=== PATIENT | female | born 1995 | race Caucasian/White ===

== ENCOUNTER → 2018-12-08 | Outpatient (CLI) | payer BC, MEDICAID ==
--- NOTE | 2018-12-08 14:54 | Diagnostic Imaging Report ---
INDICATION: survey. TECHNIQUE: Multiple real-time grayscale images were obtained over the gravid uterus. COMPARISON: None. FINDINGS: There is a single live fetus in variable presentation. heart rate was recorded at 146 beats per minute. Placenta is anterior. Placenta is in a marginal location. Amniotic fluid volume is normal. survey demonstrates cervical length to be 3.6 cm. kidneys, bladder and stomach are unremarkable. There is a four-chamber heart. There is a three-vessel cord with normal insertion. The spine is unremarkable. brain evaluation is somewhat limited due to position. Biometrical measurements are as follows: Biparietal 3.22 cm, age 16 weeks 1 days. Head circumference 12.33 cm, age 16 weeks 2 days. Abdominal circumference 10.19 cm, age 16 weeks 2 days. Femur length 1.98 cm, age 16 weeks 0 days. Sonographic estimate age: 16 weeks 2 days. Sonographic estimated date of delivery: 05/23/2019. Estimated Weight: 144 gm (+/- 21 gm). LMP percentile: 36%. heart rate: 146 beats per minute. number: 1 of 1. IMPRESSION: 1. Single live IUP 16 weeks 2 days gestational age. Estimated date of confinement sonographically is 05/23/2019. 2. Marginal anterior placenta. In addition, brain was limited in evaluation due to position. Followup could be performed. Dictated by: Dictated on workstation # [id number]
== END ==
LOC: RAD 11:59
PROVIDERS: ATTEND Obstetrics & Gynecology
DX: Z36.89 Encounter for other specified antenatal screening (principal); Z3A.16 16 weeks gestation of pregnancy
CPT/HCPCS: 76805

== ENCOUNTER → 2019-01-04 | Outpatient (CLI) | payer BC, MEDICAID ==
--- NOTE | 2019-01-04 14:16 | Diagnostic Imaging Report ---
INDICATION: Followup anatomy survey TECHNIQUE: Multiple real-time grayscale images were obtained over the gravid uterus. COMPARISON: 12/08/2018. FINDINGS: The previous OB ultrasound exam performed on 12/08/2018 note a single live fetus approximately 16 weeks 2 days gestation. There are no abnormalities identified, although the brain was not well visualized. On this exam, the brain was still difficult to image but there is no definite abnormality evident. No other abnormalities noted. The prostate did note that the placenta was anterior marginal. On this exam, there is no evidence for previa. The amniotic fluid volume is within normal limits. The growth appearance is fairly uniform and have progressed as expected since the prior study. The cervix was identified and measures 4.3 cm. Biometrical measurements are as follows: Biparietal cm, age weeks days. Head circumference cm, age weeks days. Abdominal circumference cm, age weeks days. Femur length cm, age weeks days. Sonographic estimate age: weeks days. Sonographic estimated date of delivery: . Estimated Weight: gm (+/- gm). LMP percentile: %. heart rate: beats per minute. number: of . IMPRESSION: 1. There is a single live fetus approximately 20 weeks gestation. EDC remains 05/23/2019. 2. There are no abnormalities identified. 3. The placenta is anterior, but there is no previa. 4. The growth appearance has progressed as expected since the prior study. Dictated by: Dictated on workstation # [id number]
== END ==
LOC: RAD 10:00
PROVIDERS: ATTEND Obstetrics & Gynecology
DX: Z36.89 Encounter for other specified antenatal screening (principal); Z3A.20 20 weeks gestation of pregnancy
CPT/HCPCS: 76805

== ENCOUNTER → 2019-04-15 | Outpatient (CLI) | payer BC, MEDICAID ==
[~2019-04-15] MED LIST: ACHD5005 PO; Benzocaine/Menthol TP; DIBU30OI TOP; DOCU100C37 PO; IBUP-844 PO; PREN-142 PO
--- NOTE | 2019-04-15 15:27 | Diagnostic Imaging Report ---
INDICATION: Anatomy scan. TECHNIQUE: Multiple real-time grayscale images were obtained over the gravid uterus. COMPARISON: 01/04/2019. FINDINGS: There is a single live fetus in a cephalic presentation. heart rate was recorded 130 bpm. Placenta is anterior. Amniotic fluid index is 20.7 cm. kidneys, bladder and stomach are unremarkable. There is a four-chamber heart. brain anatomy is limited due to advanced age and position. Biometrical measurements are as follows: Biparietal 8.39 cm, age 33 weeks 6 days. Head circumference 31.09 cm, age 34 weeks 6 days. Abdominal circumference 30.27 cm, age 34 weeks 2 days. Femur length 6.63 cm, age 34 weeks 1 days. Sonographic estimate age: 34 weeks 2 days. Sonographic estimated date of delivery: 05/25/2019. Estimated Weight: 2376 gm (+/- 347 gm). LMP percentile: 38%. heart rate: 130 beats per minute. number: 1 of 1. IMPRESSION: Single live IUP 34 weeks gestational age demonstrating normal interval growth when compared with prior exam. No complicating features are seen. Dictated by: Dictated on workstation # [id number]
== END ==
LOC: RAD 13:49
PROVIDERS: ATTEND Obstetrics & Gynecology
DX: Z34.93 Encounter for supervision of normal pregnancy, unspecified, third trimester (principal); Z3A.34 34 weeks gestation of pregnancy
CPT/HCPCS: 76816

== ENCOUNTER 2019-05-25 02:33 | Inpatient (IN) | payer BC, MEDICAID ==
[~2019-05-25] VITALS: Ht 167.7 cm; Wt 69.1 kg
[2019-05-25] VITALS (36 sets, daily range): BP systolic 101–140; BP diastolic 55–80
[2019-05-25] MEDS ORDERED: PREN-142 PO (02:47)
[2019-05-25] MEDS ORDERED: D5 LR IV SOLUTION 1,000 ML IV ONE (02:58)
[2019-05-25] MEDS: D5 LR IV SOLUTION 1,000 ML IV SCH ×2 (03:27→09:29)
[2019-05-25 03:30] LABS: BASOPHILS % (AUTO) 0 % (0-10); EOSINOPHILS % (AUTO) 0 % (0-10); HEMATOCRIT 37 % (35-52); HEMOGLOBIN 12.3 G/DL (11.5-16.0); LYMPHOCYTES # (AUTO) 1.9 X 10^3 (1.0-4.0); LYMPHOCYTES % (AUTO) 15 % (12-44); MEAN CORPUSCULAR HEMOGLOBIN 27 PG (25-34); MEAN CORPUSCULAR HGB CONC 33 G/DL (32-36); MEAN CORPUSCULAR VOLUME 81 FL (80-99); MONOCYTES # (AUTO) 0.9 X 10^3 (0.0-1.0); MONOCYTES % (AUTO) 7 % (0-12); NEUTROPHILS # (AUTO) 9.9 X 10^3 (1.8-7.8); NEUTROPHILS % (AUTO) 78 % (42-75); PLATELET COUNT 221 10^3/uL (130-400); RED CELL DISTRIBUTION WIDTH 14.9 % (10.0-14.5); WHITE BLOOD COUNT 12.7 10^3/uL (4.3-11.0)
[2019-05-25] MEDS ORDERED: CATHETER FLUSH 10 ML SYR IV SCH ×2 (06:00→14:00)
[2019-05-25] MEDS ORDERED: SUFENTA 0.6MCG/ML BUPIVA 0.125 100 ML ONE (06:23)
[2019-05-25] MEDS ORDERED: BUPIVACAINE 0.25% 30 ML (SENSORCAINE) VIAL ONE (06:52)
[2019-05-25] MEDS ORDERED: fentaNYL INJECTION 100 MCG/2 ML AMP ONE (06:52)
[2019-05-25] MEDS ORDERED: LACTATED RINGERS 1,000 ML IV ONE (07:27)
[2019-05-25] MEDS ORDERED: LACTATED RINGERS 1,000 ML IV SCH (07:40)
[2019-05-25] MEDS ORDERED: diphenhydrAMINE 50 MG/ML INJ (BENADRYL) IV PRN (07:45)
[2019-05-25] MEDS ORDERED: METOCLOPRAMIDE INJ 10 MG/2 ML (REGLAN) IV PRN (07:45)
[2019-05-25] MEDS ORDERED: EPIDURAL (SUFENTA 0.6MCG/ML BUPIVA 0.125%) 100 ML BAG EPI PRN (07:45)
[2019-05-25] MEDS ORDERED: NALOXONE 0.4 MG/ML 1 ML (NARCAN) VIAL IV PRN ×2 (07:45)
[2019-05-25] MEDS ORDERED: ONDANSETRON 4 MG/2 ML (SDV) Z0FRAN IV PRN (07:45)
--- NOTE | 2019-05-25 08:19 | History & Physical-OB ---
OB - Chief Complaint & HPI Date/Time Date of Admission: Date of Admission: May 25, 2019 at 02:54 Date seen by a Provider: May 25, 2019 Time Seen by a Provider: 08:14 Chief Complaint/History OB-Reason for Admission/Chief: Onset of Labor Hx : 1 Hx Para: 0 Expected Date of Delivery: May 24, 2019 Gestational Age in Weeks: 40 Gestational Age in Days: 1 Admission Nurse Assessment Rev: Yes History of Labs O neg Antibody neg RI RPR NR HBsAg NR HIV NR GC neg GBS neg Allergies and Home Medications Allergies Coded Allergies: No Known Drug Allergies (Unverified , 05/25/19) Home Medications Vit No.124/Iron/FA 1 Each Tablet, 1 EACH PO DAILY, (Reported) Patient Home Medication List Home Medication List Reviewed: Yes OB - History Hx of Present Care: Yes Ultrasounds: Normal mid trimester US Obstetrical Complications: None Medical Complications: None Obstetrical History Hx : 1 Hx Para: 0 Patient Past Medical History n/a Social History/Family History Recent Infectious Disease Expo: No Alcohol Use: Denies Use Recreational Drug Use: No 2nd Hand Smoke Exposure: No Immunizations Date of Influenza Vaccine: Mar 30, 2019 OB - Admission Exam Physical Exam Vitals: Vital Signs 05/25/19 05/25/19 07:25 07:30 Temp 36.9 Pulse 103 Resp 18 B/P (MAP) 112/64 (80) Pulse Ox 97 O2 Delivery Room Air HEENT: NCAT Heart: Rhythm Normal Lungs: Clear Abdomen: Gravid Extremities: Normal Reflexes: Normal Cervical Dilatation: 4cm Effacement: 75% Station: -1 Membranes: Intact Heart Rate: 130's Accelerations: Accelerations Present Decelerations: No Decelerations Short Term Variability: Present Senior Living Variability: Average (6-25) Contractions on Admission: < 5 Minutes Apart Intensity: Firm Labs Laboratory Tests Test 05/25/19 03:15 Range/Units White Blood Count 12.7 H 4.3-11.0 10^3/uL Red Blood Count 4.57 4.35-5.85 10^6/uL Hemoglobin 12.3 11.5-16.0 G/DL Hematocrit 37 35-52 % Mean Corpuscular Volume 81 80-99 FL Mean Corpuscular Hemoglobin 27 25-34 PG Mean Corpuscular Hemoglobin Concent 33 32-36 G/DL Red Cell Distribution Width 14.9 H 10.0-14.5 % Platelet Count 221 130-400 10^3/uL Mean Platelet Volume 11.0 H 7.4-10.4 FL Neutrophils (%) (Auto) 78 H 42-75 % Lymphocytes (%) (Auto) 15 12-44 % Monocytes (%) (Auto) 7 0-12 % Eosinophils (%) (Auto) 0 0-10 % Basophils (%) (Auto) 0 0-10 % Neutrophils # (Auto) 9.9 H 1.8-7.8 X 10^3 Lymphocytes # (Auto) 1.9 1.0-4.0 X 10^3 Monocytes # (Auto) 0.9 0.0-1.0 X 10^3 Eosinophils # (Auto) 0.0 0.0-0.3 10^3/uL Basophils # (Auto) 0.0 0.0-0.1 10^3/uL OB - Assessment/Plan/Diagnosis Assessment Assessment: active labor Admission Dx 24 yo @ 40.1 weeks Active labor GBS neg Admission Status: Inpatient Order (span 2 midnights) Reason for Inpatient Admission: Active labor at term Plan Plan: Expectant Management KWESI NIETO DO May 25, 2019 08:19 POS
[2019-05-25] MEDS ORDERED: OXYTOCIN/NORMAL SALINE 500 ML IV ONE (08:58)
[2019-05-25] MEDS ORDERED: OXYTOCIN/NORMAL SALINE 500 ML IV SCH ×2 (09:01→12:17)
--- NOTE | 2019-05-25 12:21 | OB Labor & Delivery Record ---
L&D History Date of Service Date of Service: May 25, 2019 History Expected Date of Delivery: May 24, 2019 Gestational Age in Weeks: 40 Hx : 1 Hx Para: 0 Complications Events: Routine care Operative Indications (Cesarea: N/A-Vaginal Delivery Intrapartal Events: None L&D Stage1 Stage One Onset of Labor - Date: May 25, 2019 Monitors and Tracing Monitor Mode: External Heart Rate: 135 Monitor Accelerations: Uniform Monitor Decelerations: Variable Station: +2 Perforator Operator Variability: Average (6-10) Short Term Variability: Present Presentation: Vertex Vital Signs VS - Last 72 Hours, by Label POS 05/25/19 05/25/19 05/25/19 05/25/19 02:50 02:56 06:15 07:00 Temp 36.2 Pulse 73 73 74 88 Resp 18 18 18 B/P (MAP) 129/77 (94) 129/71 (90) Pulse Ox 98 98 99 99 O2 Delivery Room Air Room Air Room Air 05/25/19 05/25/19 05/25/19 05/25/19 07:15 07:20 07:25 07:30 Temp 36.9 Pulse 68 68 109 103 Resp 18 18 18 18 B/P (MAP) 118/70 (86) 118/70 (86) 110/59 (76) 112/64 (80) Pulse Ox 98 98 100 97 O2 Delivery Room Air Room Air Room Air Room Air 05/25/19 05/25/19 05/25/19 05/25/19 07:45 08:00 08:15 08:30 Pulse 67 69 87 74 Resp 18 18 18 18 B/P (MAP) 111/59 (76) 111/66 (81) 127/66 (86) 105/64 (78) Pulse Ox 99 100 100 100 O2 Delivery Room Air Room Air Room Air Room Air 05/25/19 05/25/19 05/25/19 05/25/19 08:32 08:45 09:00 09:15 Pulse 59 57 61 Resp 18 18 18 B/P (MAP) 105/60 (75) 105/60 (75) 108/61 (77) Pulse Ox 100 100 100 O2 Delivery Non Rebreather Non Rebreather Non Rebreather Non Rebreather O2 Flow Rate 15.00 15.00 15.00 15.00 05/25/19 05/25/19 05/25/19 05/25/19 09:24 09:30 09:45 10:00 Pulse 74 72 81 Resp 18 18 18 B/P (MAP) 115/66 (82) 114/69 (84) 123/73 (90) Pulse Ox 99 98 99 O2 Delivery Room Air Room Air Room Air Room Air 05/25/19 05/25/19 05/25/19 05/25/19 10:15 10:30 10:45 11:00 Pulse 70 68 71 74 Resp 18 18 18 18 B/P (MAP) 116/66 (83) 117/65 (82) 116/69 (85) 132/69 (90) Pulse Ox 98 99 98 99 O2 Delivery Room Air Room Air Room Air Room Air Rupture of Membranes Spontaneous Ruture of Membrane: No Amniotic Membrane Rupture Time: 0810 Amniotic Membrane Fluid Desc.: Clear Vaginal Bleeding Description: Normal Show Induction/Anesthesia Epidural Cath Placement - Time: 0712 Progress/Notes Patient progressed to complete and +2 station with AROM and low dose pitocin augmentation L&D Stage2 Stage Two Stage II Date: May 25, 2019 Monitors and Tracing Monitor Mode: External Heart Rate: 135 Perforator Operator Variability: Average (6-10) Short Term Variability: Present Position: Right Occiput Anterior Presentation: Vertex Cord Descript/Complications Cord Vessel Description: 3 Vessels Complications nuchal cord reduced x 2 Delivery Type Delivery Method: Spontaneous Vaginal Anterior Shoulder: Right Episiotomy/Perineal Laceration Laceraction(s)/Extensions: Yes Episiotomy Description: Perineal Extension/lac (midline perineal/vaginal and bilateral labial lacerations) Degree (describe repair) lacerations repaired using 3-0 vicryl suture in usual fashion Condition of Infant Delivery 1 minute Comment: 8 5 minute Comment: 9 Notes Live male , weight pending Condition of Condition of Infant: Living Exam: No Observed Abnormalities Resuscitation Resuscitation: N/A - Spontaneous Resp L&D Stage3 Stage Three Stage III Date: May 25, 2019 Pictocin Pitocin Administration mu/min: 4 Pitocin ml/hr: 4 Pitocin Administration Comment: wide open 30 mu given after delivery of placenta Placenta Delivery Placenta Delivery: Spontaneous Delivery Summary Summary Estimated blood loss (mL): 350 Attending at delivery: Kwesi Nieto DO Condition of Delivery Examined: Cervix Examined, Uterus Explored Post Hemorrhage: No Condition of Mother stable Condition of (s) stable KWESI NIETO DO May 25, 2019 12:21 pm POS
[2019-05-25] MEDS ORDERED: MEASLES,MUMPS,RUBELLA 1 EA INJ SQ ONE (12:30)
[2019-05-25] MEDS ORDERED: WITCH HAZEL(TUCKS) 40 EA JAR TOP PRN (12:30)
[2019-05-25] MEDS ORDERED: HYDROcodone/APAP 5 MG/325 MG (LORTAB) TAB PO PRN (12:30)
[2019-05-25] MEDS ORDERED: TETANUS,DIPTH,PERTUSS P/F (BOOSTRIX) 0.5 ML VIAL IM ONE (12:30)
[2019-05-25] MEDS ORDERED: BENZOCAINE/MENTHOL (DERMOPLAST) 56 ML CAN TP PRN (12:30)
[2019-05-25] MEDS ORDERED: IBUPROFEN 600 MG (MOTRIN) TAB PO ONE (13:13)
[2019-05-25] MEDS: IBUPROFEN 600 MG (MOTRIN) TAB PO SCH ×2 (13:17→20:16)
[2019-05-25 14:18] LABS: BILIRUBIN,URINE NEGATIVE (NEGATIVE); CLARITY,URINE CLEAR; COLOR,URINE YELLOW; GLUCOSE, URINE (UA) NEGATIVE (NEGATIVE); KETONES,URINE NEGATIVE (NEGATIVE); LEUKOCYTE ESTERASE ,URINE 1+ (NEGATIVE); NITRITE,URINE NEGATIVE (NEGATIVE); PROTEIN,URINE NEGATIVE (NEGATIVE)
[2019-05-25 14:26] LABS: BACTERIA,URINE TRACE /HPF
[2019-05-25] MEDS ORDERED: DIBUCAINE (NUPERCAINAL) 1% OINT 30 GM TOP PRN (16:00)
[2019-05-25] MEDS ORDERED: DIBUCAINE (NUPERCAINAL) 1% OINT 30 GM ONE (16:20)
[2019-05-25] MEDS: DOCUSATE SODIUM 100 MG (COLACE) CAP PO SCH (20:16)
[2019-05-26] VITALS (7 sets, daily range): BP systolic 93–115; BP diastolic 50–72
[2019-05-26] MEDS: IBUPROFEN 600 MG (MOTRIN) TAB PO SCH ×4 (02:21→20:48)
[2019-05-26 07:00] LABS: BASOPHILS % (AUTO) 0 % (0-10); EOSINOPHILS # (AUTO) 0.1 10^3/uL (0.0-0.3); EOSINOPHILS % (AUTO) 1 % (0-10); HEMATOCRIT 36 % (35-52); HEMOGLOBIN 11.2 G/DL (11.5-16.0); LYMPHOCYTES # (AUTO) 2.4 X 10^3 (1.0-4.0); LYMPHOCYTES % (AUTO) 20 % (12-44); MEAN CORPUSCULAR HEMOGLOBIN 27 PG (25-34); MEAN CORPUSCULAR HGB CONC 32 G/DL (32-36); MEAN CORPUSCULAR VOLUME 85 FL (80-99); MEAN PLATELET VOLUME 11.8 FL (7.4-10.4); MONOCYTES # (AUTO) 0.8 X 10^3 (0.0-1.0); MONOCYTES % (AUTO) 7 % (0-12); NEUTROPHILS # (AUTO) 8.5 X 10^3 (1.8-7.8); NEUTROPHILS % (AUTO) 72 % (42-75); PLATELET COUNT 196 10^3/uL (130-400); RED CELL DISTRIBUTION WIDTH 14.6 % (10.0-14.5); WHITE BLOOD COUNT 11.9 10^3/uL (4.3-11.0)
[2019-05-26] MEDS: DOCUSATE SODIUM 100 MG (COLACE) CAP PO SCH ×2 (08:27→20:47)
[2019-05-26] MEDS: FERROUS SULF 325 MG (IRON) TAB PO SCH (08:27)
--- NOTE | 2019-05-26 08:27 | Postpartum Progress Note ---
Note Note Day # 1 Subjective: Patient is without complaints. Ambulating, voiding. Tolerating a regular diet without nausea or vomiting. Normal lochia. Pain is well controlled with oral pain medications. Objective: Physical Exam: General - Alert and oriented, no apparent distress Abdomen - Soft, appropriately tender to palpation, non-distended, fundus firm at umbilicus Extremities - no edema, negative Medina's bilaterally Assessment: PPD 1 NVD Plan: Routine care. Encourage breast feeding. Encourage ambulation. Ferrous sulfate supplementation. Plan for discharge today Vitals - Labs Vital Signs - I&O Vital Signs Date Time Temp Pulse Resp B/P (MAP) Pulse Ox O2 Delivery O2 Flow Rate FiO2 05/26/19 02:20 36.5 71 20 108/55 (72) 97 Room Air 05/26/19 00:00 37.0 79 18 100/54 (69) 97 Room Air 05/25/19 20:00 36.7 89 18 101/55 (70) 97 Room Air 05/25/19 16:00 37.2 76 18 107/59 (75) 97 Room Air 05/25/19 14:30 87 18 111/64 (80) Room Air 05/25/19 14:15 86 18 111/65 (80) Room Air 05/25/19 14:00 83 18 113/65 (81) Room Air 05/25/19 13:45 75 18 114/64 (81) Room Air 05/25/19 13:30 91 18 115/59 (77) 99 Room Air 05/25/19 13:15 83 18 107/65 (79) Room Air 05/25/19 13:00 86 18 111/65 (80) Room Air 05/25/19 12:45 87 18 112/69 (83) Room Air 05/25/19 12:30 103 20 105/63 (77) Room Air 05/25/19 12:00 100 20 133/70 (91) Room Air 05/25/19 11:45 105 18 140/80 (100) Room Air 05/25/19 11:32 37.5 05/25/19 11:30 105 18 124/68 (86) 100 Room Air 05/25/19 11:15 84 18 129/73 (91) 100 Room Air 05/25/19 11:00 74 18 132/69 (90) 99 Room Air 05/25/19 10:45 71 18 116/69 (85) 98 Room Air 05/25/19 10:30 68 18 117/65 (82) 99 Room Air 05/25/19 10:15 70 18 116/66 (83) 98 Room Air 05/25/19 10:00 81 18 123/73 (90) 99 Room Air 05/25/19 09:45 72 18 114/69 (84) 98 Room Air 05/25/19 09:30 74 18 115/66 (82) 99 Room Air 05/25/19 09:24 Room Air 05/25/19 09:15 61 18 108/61 (77) 100 Non Rebreather 15.00 05/25/19 09:00 57 18 105/60 (75) 100 Non Rebreather 15.00 05/25/19 08:45 59 18 105/60 (75) 100 Non Rebreather 15.00 05/25/19 08:32 Non Rebreather 15.00 05/25/19 08:30 74 18 105/64 (78) 100 Room Air I & O 05/26/19 07:00 Intake Total 2000 ml Balance 2000 ml Labs Laboratory Tests 05/26/19 06:00: White Blood Count 11.9H, Red Blood Count 4.19L, Hemoglobin 11.2L, Hematocrit 36, Mean Corpuscular Volume 85, Mean Corpuscular Hemoglobin 27, Mean Corpuscular Hemoglobin Concent 32, Red Cell Distribution Width 14.6H, Platelet Count 196, Mean Platelet Volume 11.8H, Neutrophils (%) (Auto) 72, Lymphocytes (%) (Auto) 20, Monocytes (%) (Auto) 7, Eosinophils (%) (Auto) 1, Basophils (%) (Auto) 0, Neutrophils # (Auto) 8.5H, Lymphocytes # (Auto) 2.4, Monocytes # (Auto) 0.8, Eosinophils # (Auto) 0.1, Basophils # (Auto) 0.0 KWESI NIETO DO May 26, 2019 08:27 POS
[2019-05-26] MEDS ORDERED: ACHD5005 PO (08:30)
[2019-05-26] MEDS ORDERED: DOCU100C37 PO (08:30)
[2019-05-26] MEDS ORDERED: DIBU30OI TOP (08:30)
[2019-05-26] MEDS ORDERED: IBUP-844 PO (08:30)
[2019-05-26] MEDS ORDERED: Benzocaine/Menthol TP (08:30)
--- NOTE | 2019-05-26 08:31 | Discharge Inst-Women's Service ---
Discharge Inst-Women's Serv Depart Medication/Instructions New, Converted or Re-Newed RX: RX on Chart Final Diagnosis PPD 1 NVD Problems Reviewed?: Yes Consults/Follow Up Additional Follow Up: Yes Orders/Referrals Dr. Cotton in 6 weeks Activity Activity: Activity as Tolerated Driving Instructions: No Driving for 1 Week NO SMOKING: NO SMOKING Nothing Inside Vagina: No Douching, No [place], No Tampons Diet Discharge Diet: No Restrictions Symptoms to Report to : Bleeding Excessive, Pain Increased, Fever Over 101 Degrees F, Vaginal Bleeding Increase, Questions/Concerns For Any Problems or Questions: Contact Your Physician KWESI NIETO DO May 26, 2019 08:31 POS
--- NOTE | 2019-05-26 16:40 | Anesthesia-Regional Post-Op ---
Regional Patient Condition Mental Status: Alert, Oriented x3 Circulation: Same as Pre-Op Headache: Absent Sensation: Full Recovery Motor Block: Absent Post Op Complications Complications None Follow Up Care/Instructions Patient Instructions None needed. Anesthesia/Patient Condition Patient is doing well, no complaints, stable vital signs, no apparent adverse anesthesia problems. No complications reported per nursing. KIMMY BARNEY CRNA May 26, 2019 16:40 POS
[2019-05-27] MEDS: IBUPROFEN 600 MG (MOTRIN) TAB PO SCH ×2 (02:25→08:49)
[2019-05-27 03:53] VITALS: BP 99/55
--- NOTE | 2019-05-27 07:11 | Postpartum Progress Note ---
Note Note Day # 2 Subjective: Patient is without complaints. Ambulating, voiding. Tolerating a regular diet without nausea or vomiting. Normal lochia. Pain is well controlled with oral pain medications. Objective: Physical Exam: General - Alert and oriented, no apparent distress Abdomen - Soft, appropriately tender to palpation, non-distended, fundus firm at umbilicus Extremities - no edema, negative Medina's bilaterally Assessment: PPD 2 NVD Plan: Routine care. Encourage breast feeding. Encourage ambulation. Ferrous sulfate supplementation. Plan for discharge today Vitals - Labs Vital Signs - I&O Vital Signs Date Time Temp Pulse Resp B/P (MAP) Pulse Ox O2 Delivery O2 Flow Rate FiO2 05/27/19 03:53 36.6 68 18 99/55 (70) 98 Room Air 05/26/19 23:19 36.3 85 18 93/50 (64) 95 Room Air 05/26/19 19:31 36.8 102 18 109/72 (84) 98 Room Air 05/26/19 16:14 36.7 99 20 93/64 (74) 98 Room Air 05/26/19 14:00 36.5 109 16 115/62 (79) 97 Room Air 05/26/19 08:00 36.4 70 18 104/59 (74) 97 Room Air I & O 05/27/19 07:00 Intake Total 1800 ml Balance 1800 ml Labs Microbiology 05/25/19 Urine Culture - Final, Complete 3 or more isolates KWESI NIETO DO May 27, 2019 07:11 POS
[2019-05-27 08:45] VITALS: BP 101/65
[2019-05-27] MEDS: FERROUS SULF 325 MG (IRON) TAB PO SCH (08:49)
[2019-05-27] MEDS: DOCUSATE SODIUM 100 MG (COLACE) CAP PO SCH (08:49)
== END 2019-05-27 13:25 | disposition home or self-care (01) | DRG 807 ==
LOC: WSo 02:33 → LDRP 02:34 → WSo 02:54 → LDRP 13:35
PROVIDERS: ADMIT Obstetrics & Gynecology; ATTEND Obstetrics & Gynecology
PROC: 10E0XZZ Delivery of Products of Conception, External Approach (ICD-10-PCS; principal; 2019-05-25)
PROC: 0W8NXZZ Division of Female Perineum, External Approach (ICD-10-PCS; 2019-05-25)
DX: O69.81X0 Labor and delivery complicated by cord around neck, without compression, not applicable or unspecified (principal); Z37.0 Single live birth; Z3A.40 40 weeks gestation of pregnancy; Z23 Encounter for immunization
CPT/HCPCS: 36415; 81000; 83033; 85025; 86850; 86900; 86901; 87088; 99212